=== PATIENT | female | born 1980 | race Caucasian/White ===

== ENCOUNTER 2017-03-07 13:15 | Emergency (ER) | payer MEDICAID ==
[2017-03-07] MEDS ORDERED: ONDANSETRON 2MG/ML, 2ML ONE (15:06)
[2017-03-07] MEDS ORDERED: MORPHINE SULFATE 4 MG/ML, 1ML ONE (15:06)
[2017-03-07] MEDS ORDERED: MECLIZINE CHEWABLE 25 MG TAB ONE (15:06)
== END 2017-03-07 16:25 | disposition home or self-care (01) ==
LOC: ED 13:15
DX: S09.90XA Unspecified injury of head, initial encounter (principal); V43.62XA Car passenger injured in collision with other type car in traffic accident, initial encounter; Y93.89 Activity, other specified; Y99.8 Other external cause status; Y92.89 Other specified places as the place of occurrence of the external cause
CPT/HCPCS: 70450; 72125